=== PATIENT | male | born 1960 | race Caucasian/White ===

== ENCOUNTER → 2016-12-14 | Outpatient (CLI) | payer OTHER ==
--- NOTE | 2016-12-14 16:30 | PDCARST ---
CAR Stress Test Results Type of Stress Test: nuclear TM stress test Indication: cp/CAD Description of Procedure: After informed consent was obtained, pt was exercised according to [facility] Protocol. Monitoring was performed with standard stress tester wafer substrate electrode placement. Vital signs were monitored according to protocol throughout the procedure. STRESS EKG AND HEMODYNAMIC DATA. Exercise time: 10 min. This is equivalent to: 10.6 METS. Resting heart rate: 83 bpm. Resting blood pressure: 124/80 mmHg. Resting O2 saturation: 97%. Peak heart rate: 164 bpm. This is 98% of age predicted maximum heart rate response. Peak blood pressure: 174/70 mmHg. Exercise O2: 95 %. Arrhythmias : None. Reason for termination: The test was stopped due to shortness of breath /maximal effort. Symptoms: The patient experienced no typical symptoms of angina during stress or recovery. STRESS TEST ANALYSIS. Baseline ECG: SR with mild ST-T w abnormality. Stress ECG: ST with 1 mm flat STD. exercise induced ischemic ECG changes: Yes. Rhythm: No arrhythmias noted during exercise and recovery. Blood pressure: Normal blood pressure response to exercise. Exercise tolerance: The patient has normal exercise tolerance adjusted for age and gender. Symptoms: Shortness of breath. Impression: IMPRESSIONS: Stress ECG equivocal for ischemia. The Fajardo Treadmill Score is 10- 5(1) = 5. Conclusion: Await nuclear images.
== END ==
LOC: FIMAGING 13:22
PROVIDERS: ATTEND Nurse Practitioner Adult Health
DX: I25.10 Atherosclerotic heart disease of native coronary artery without angina pectoris (principal); R07.9 Chest pain, unspecified
CPT/HCPCS: 78452; 93017; A9500

== ENCOUNTER 2017-10-31 15:36 | Observation (INO) | payer OTHER ==
[2017-10-31] MEDS ORDERED: NS 1,000 ML IV ONE (15:52)
--- NOTE | 2017-10-31 15:53 | EDPHY ---
HPI/HX/ROS/PE/MDM Narrative: CHIEF COMPLAINT: "Been having really high blood pressure lately, feeling it" HPI: The patient is a 57 y/o male with a history of CAD post circumflex stenting in 2016 and 2017, hypertension, and dyslipidemia complaining of high blood pressure, anxiety, and mild chest pain for the last 2-3 days. He has felt poor throughout the weekend and started checking his blood pressure today. His home monitor showed 198/96 and later at the pharmacy it was 208/111, prompting him to come to the ED. He reports he is "diligent" with his antihypertensives and cardiac medications and recently restarted HCTZ at his provider's direction. He complains of associated 2/10, dull, left anterior chest pressure that is much more mild than his prior VT and he attributes it to anxiety. He took 0.25mg of his Clonazepam today for this and feels slightly better now , though he continues to feel anxious and "spooked." He denies fever, chills, dyspnea, nausea, vomiting, abdominal pain, or other complaints. REVIEW OF SYSTEMS: Aside from elements discussed in the HPI, a comprehensive 10-point review of systems was reviewed and is negative. PMH: CAD (Brilinta) and VT status post circumflex stenting 2015 and 2016; hypertension (lisinopril, metoprolol, HCTZ); dyslipidemia (rosuvastatin); cholecystectomy 2003; knee surgery 2000; tonsillectomy 2004. Prior medical records reviewed including admission 12/02/16 for chest pain. SOCIAL HISTORY: Nonsmoker. Sober. . 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 PHYSICAL EXAM: General:Patient is alert, in no acute distress. BP 178/108. ENT:Eyes are normal to inspection. ENT inspection normal. Neck: Normal inspection. Full range of motion. Respiratory:No respiratory distress. Breath sounds normal bilaterally. Cardiovascular: Regular rate and rhythm. Strong peripheral pulses. Normal cap refill. Abdomen:The abdomen is nontender to palpation. There are no peritoneal signs. Back: Normal to inspection. No tenderness to palpation. Skin: Normal color. No rash. Warm and dry. Extremities: Normal appearance. Full range of motion. Neuro: Oriented x3. Normal motor function. Normal sensory function. ED Course: This is a 57 y/o male with a significant cardiac history who presents with a 2-3 -day history of malaise, anxiety, chest pain, and hypertension. Pain is mild compared to prior VT. Exam is unremarkable. BP here is 178/108. Plan for standard chest pain work up including IV, labs, EKG, chest x-ray. The 12 lead EKG was interpreted by myself. Sinus mechanism rate 81. See hard copy and/or "tracemaster" electronic copy for interpretation. Chest x-ray: negative Labs including troponin are normal. Reassessed patient and discussed findings. Offered admission for further investigation of his chest pain, which he ultimately agrees to. Spoke with hospitalist service. Dr. Chavez accepts admission. - Data Points Imaging Results: Imaging Impressions Chest X-Ray 10/31/17 15:47 Impression: Clear lungs. No pulmonary edema or effusion. Imaging: I viewed and interpreted images myself Laboratory Results: Laboratory Results 10/31/17 15:55 10/31/17 15:55 10/31/17 10/31/17 10/31/17 15:58 15:55 15:55 WBC 8.14 10^3/uL 10^3/uL (3.80-9.50) RBC 5.29 10^6/uL 10^6/uL (4.40-6.38) Hgb 16.1 g/dL g/dL (13.7-17.5) Hct 46.4 % % (40.0-51.0) MCV 87.7 fL fL (81.5-99.8) MCH 30.4 pg pg (27.9-34.1) MCHC 34.7 g/dL g/dL (32.4-36.7) RDW 12.6 % % (11.5-15.2) Plt Count 211 10^3/uL 10^3/uL (150-400) MPV 10.7 fL fL (8.7-11.7) Neut % (Auto) 73.8 % % (39.3-74.2) Lymph % (Auto) 18.2 % % (15.0-45.0) [place] % (Auto) 6.6 % % (4.5-13.0) Eos % (Auto) 0.7 % % (0.6-7.6) Baso % (Auto) 0.5 % % (0.3-1.7) Nucleat RBC Rel Count 0.0 % % (0.0-0.2) Absolute Neuts (auto) 6.00 10^3/uL 10^3/uL (1.70-6.50) Absolute Lymphs (auto) 1.48 10^3/uL 10^3/uL (1.00-3.00) Absolute Monos (auto) 0.54 10^3/uL 10^3/uL (0.30-0.80) Absolute Eos (auto) 0.06 10^3/uL 10^3/uL (0.03-0.40) Absolute Basos (auto) 0.04 10^3/uL 10^3/uL (0.02-0.10) Absolute Nucleated RBC 0.00 10^3/uL 10^3/uL (0-0.01) Immature Gran % 0.2 % % (0.0-1.1) Immature Gran # 0.02 10^3/uL 10^3/uL (0.00-0.10) Sodium 141 mEq/L mEq/L (135-145) Potassium 3.6 mEq/L mEq/L (3.3-5.0) Chloride 105 mEq/L mEq/L (97-110) Carbon Dioxide 24 mEq/l mEq/l (22-31) Anion Gap 12 mEq/L mEq/L (8-16) BUN 14 mg/dL mg/dL (7-23) Creatinine 0.9 mg/dL mg/dL (0.7-1.3) Estimated GFR > 60 Glucose 94 mg/dL mg/dL (70-100) Calcium 9.9 mg/dL mg/dL (8.5-10.4) POC Troponin I 0.00 ng/mL ng/mL (0.00-0.08) Medications Given: Discontinued Medications Sodium Chloride (Ns) 1,000 mls @ 0 mls/hr IV EDNOW ONE; Wide Open PRN Reason: Protocol Stop: 10/31/17 15:53 Last Admin: 10/31/17 16:03 Dose: 1,000 mls Point of Care Test Results: Chemistry 10/31/17 15:58 POC Troponin I 0.00 ng/mL ng/mL (0.00-0.08) General Time Seen by Provider: 10/31/17 15:47 Initial Vital Signs: Initial Vital Signs Temperature (C) 36.7 C 10/31/17 15:39 Heart Rate 86 10/31/17 15:39 Respiratory Rate 18 10/31/17 15:39 Blood Pressure 178/108 H 10/31/17 15:39 O2 Sat (%) 96 10/31/17 15:39 O2 Delivery Mode Room Air Allergies/Adverse Reactions: No Known Allergies Allergy (Verified 10/31/17 15:38) Home Medications: Medication Instructions Recorded Hydrochlorothiazide [HCTZ (*)] 25 mg PO DAILY 10/07/15 Lisinopril [Zestril 40 mg (*)] 40 mg PO DAILY 10/07/15 Aspirin EC [Aspirin EC 81 mg (*)] 81 mg PO DAILY #0 tab 10/08/15 Ticagrelor [Brilinta] 90 mg PO BID #60 tablet 10/08/15 Multivitamins [Multivitamin (*)] 1 each PO DAILY 12/02/16 Roosevelt-3 Fatty Acids [Fish Oil 1000 1,000 mg PO DAILY 12/02/16 mg (*)] Acetaminophen [Tylenol 325mg (*)] 650 mg PO Q4HRS PRN #0 tab 12/04/16 Metoprolol Tartrate [Lopressor 25 2 tab PO BID #60 tab 12/04/16 mg (*)] Rosuvastatin Calcium [Crestor 40mg 40 mg PO DAILY #30 tab 12/04/16 (*)] Departure - Departure Disposition: [facility] Inpatient Acute Clinical Impression: Chest pain Qualifiers: Chest pain type: other chest pain Qualified Code(s): R07.89 - Other chest pain ; R07.8 - Other chest pain Hypertension Qualifiers: Hypertension type: unspecified Qualified Code(s): I10 - Essential (primary) hypertension Condition: Fair Referrals: Eliezer López MD [Primary Care Provider] - As per Instructions Report Scribed for: Paulo Kong Report Scribed by: Manda Mullen Date of Report: 10/31/17 Time of Report: 16:03 Physician Review and Approval Statement: Portions of this note were transcribed by an ED scribe. I personally performed the history, physical exam, and medical decision making; and confirm the accuracy of the information in the transcribed note.
--- NOTE | 2017-10-31 15:56 | CPEKG ---
Heart Rate: 81 RR Interval: 741 P-R Interval: 144 QRSD Interval: 96 QT Interval: 368 QTC Interval: 428 P Gallaway: 57 QRS Gallaway: -7 T Wave Gallaway: 21 EKG Severity - ABNORMAL ECG - EKG Impression: SINUS RHYTHM EKG Impression: PROBABLE LEFT VENTRICULAR HYPERTROPHY EKG Impression: PROBABLE INFERIOR INFARCT, AGE INDETERMINATE Electronically Signed By: Paulo Kong 31-Oct-2017 17:01:08
[2017-10-31 16:06] LABS: PLATELET COUNT 211 10^3/uL (150-400)
[2017-10-31] MEDS ORDERED: ONDANSETRON DISINTEGRATING 4 MG TAB PO PRN (17:28)
[2017-10-31] MEDS ORDERED: ONDANSETRON 4 MG/2 ML VIAL IVP PRN (17:28)
[2017-10-31] MEDS ORDERED: ACETAMINOPHEN 325 MG TAB PO PRN (17:28)
[2017-10-31] MEDS ORDERED: NITROGLYCERIN 0.4 MG BTL SL PRN (17:51)
--- NOTE | 2017-10-31 18:58 | PDGENHP ---
History and Physical - Chief Complaint Acute chest pain - History of Present Illness Primary care provider: Dr. Teofilo Rodriguez Primary spring assembler: Dr. López HPI: 57-year-old male presenting with acute chest pain characterized as a dull pressure located in his left chest with associated anxiety, with symptom onset approximately 2 days ago and duration persistent thereafter. Patient reports that the symptoms have persisted while at rest. He reports that approximately 1 week ago, he was chopping down a tree and during this level of physical exertion, he experienced similar symptoms. They were alleviated with rest. In the interim, he has not experienced any similar symptoms, but they returned 2 days prior without any provocation. He reports that he has taken his 's clonazepam and this has slightly alleviated his symptoms. He is otherwise continue all of his home blood pressure medications, and over the past several days he has noted significant blood pressure elevation, with systolic blood pressure being as high as 210 at home. He has been checking his blood pressure frequently. When he checks his blood pressure and it is elevated beyond 140, the patient becomes anxious. In comparison to his previous ME symptoms, the patient reports that this pressure is substantially milder, and his symptoms 2 years ago were an actual sharp stabbing pain. He otherwise denies any infectious symptoms or any GI symptoms. History Information - Allergies/Home Medication List Allergies/Adverse Reactions: No Known Allergies Allergy (Verified 10/31/17 15:38) Home Medications: Hydrochlorothiazide [HCTZ (*)] 25 mg PO DAILY 10/07/15 [Last Taken 10/31/17 08: 00] Lisinopril [Zestril 40 mg (*)] 40 mg PO DAILY 10/07/15 [Last Taken 10/31/17 08: 00] Multivitamins [Multivitamin (*)] 1 tab PO DAILY 12/02/16 [Last Taken 10/31/17 08 :00] Herbals/Supplements -Info Only 1 ea PO DAILY 10/31/17 [Last Taken Unknown] I have personally reviewed and updated: family history, medical history, social history, surgical history - Past Medical History coronary artery disease (s/p ME with stent to circumflex 2015, in stent stenosis in 2017 requiring 2 subsequent stents, known disease in the LAD and RCA ), hypertension, hyperlipidemia - Surgical History Reports: cholecystectomy, coronary stent Additional surgical history: ortho surgery. tonsillectomy - Family History Positive for: CAD (both partents with MIs in their 50s) - Social History Smoking Status: Current some day smoker (Occasional cigars) Alcohol Use: Rarely Drug Use: None Additional social history: , does not exercise regularly but he does walk his dog for approximately 60 min per day knee does not experience chest pain or shortness of breath during this activity Review of Systems Review of Systems: ROS: 10pt was reviewed & negative except for what was stated in HPI & below Cardiac: Reports: chest pain Neurological: Reports: anxiety Physical Exam Physical Exam: Temp Pulse Resp BP Pulse Ox 36.9 C 70 15 172/101 H 95 10/31/17 18:16 10/31/17 18:16 10/31/17 18:16 10/31/17 18:16 10/31/17 18:16 Constitutional: no apparent distress, appears nourished, not in pain Eyes: PERRL, anicteric sclera, EOMI Ears, Nose, Mouth, Throat: moist mucous membranes, hearing normal, ears appear normal, no oral mucosal ulcers Cardiovascular: regular rate and rhythym, no murmur, rub, or gallop, No edema Respiratory: no respiratory distress, no rales or rhonchi, clear to auscultation Gastrointestinal: normoactive bowel sounds, soft, non-tender abdomen, no palpable masses Skin: other (Benign nevi approximately 1 cm right back), No abrasion, No rash Musculoskeletal: other (Mild tenderness over the left pectoralis muscle, mild pain elicited in the left shoulder with full range of motion, no pain elicited in the right shoulder with full range of motion) Neurologic: AAOx3, sensation intact bilaterally, No weakness Psychiatric: not encephalopathic, thought process linear, anxious, No agitated Lab Data & Imaging Review 10/31/17 15:55 10/31/17 15:55 WBC 8.14 10^3/uL (3.80-9.50) 10/31/17 15:55 RBC 5.29 10^6/uL (4.40-6.38) 10/31/17 15:55 Hgb 16.1 g/dL (13.7-17.5) 10/31/17 15:55 Hct 46.4 % (40.0-51.0) 10/31/17 15:55 MCV 87.7 fL (81.5-99.8) 10/31/17 15:55 MCH 30.4 pg (27.9-34.1) 10/31/17 15:55 MCHC 34.7 g/dL (32.4-36.7) 10/31/17 15:55 RDW 12.6 % (11.5-15.2) 10/31/17 15:55 Plt Count 211 10^3/uL (150-400) 10/31/17 15:55 MPV 10.7 fL (8.7-11.7) 10/31/17 15:55 Neut % (Auto) 73.8 % (39.3-74.2) 10/31/17 15:55 Lymph % (Auto) 18.2 % (15.0-45.0) 10/31/17 15:55 [place] % (Auto) 6.6 % (4.5-13.0) 10/31/17 15:55 Eos % (Auto) 0.7 % (0.6-7.6) 10/31/17 15:55 Baso % (Auto) 0.5 % (0.3-1.7) 10/31/17 15:55 Nucleat RBC Rel Count 0.0 % (0.0-0.2) 10/31/17 15:55 Absolute Neuts (auto) 6.00 10^3/uL (1.70-6.50) 10/31/17 15:55 Absolute Lymphs (auto) 1.48 10^3/uL (1.00-3.00) 10/31/17 15:55 Absolute Monos (auto) 0.54 10^3/uL (0.30-0.80) 10/31/17 15:55 Absolute Eos (auto) 0.06 10^3/uL (0.03-0.40) 10/31/17 15:55 Absolute Basos (auto) 0.04 10^3/uL (0.02-0.10) 10/31/17 15:55 Absolute Nucleated RBC 0.00 10^3/uL (0-0.01) 10/31/17 15:55 Immature Gran % 0.2 % (0.0-1.1) 10/31/17 15:55 Immature Gran # 0.02 10^3/uL (0.00-0.10) 10/31/17 15:55 D-Dimer < 0.27 ug/mLFEU (0.00-0.50) 10/31/17 17:30 Sodium 141 mEq/L (135-145) 10/31/17 15:55 Potassium 3.6 mEq/L (3.3-5.0) 10/31/17 15:55 Chloride 105 mEq/L (97-110) 10/31/17 15:55 Carbon Dioxide 24 mEq/l (22-31) 10/31/17 15:55 Anion Gap 12 mEq/L (8-16) 10/31/17 15:55 BUN 14 mg/dL (7-23) 10/31/17 15:55 Creatinine 0.9 mg/dL (0.7-1.3) 10/31/17 15:55 Estimated GFR > 60 10/31/17 15:55 Glucose 94 mg/dL (70-100) 10/31/17 15:55 Calcium 9.9 mg/dL (8.5-10.4) 10/31/17 15:55 POC Troponin I 0.00 ng/mL (0.00-0.08) 10/31/17 15:58 Visualized and Interpreted Chest x-ray results: Yes Chest X-Ray results: no infiltrate Visualized and Interpreted EKG results: Yes EKG Interpretation: Positive for: other (Normal sinus rhythm with T-wave inversion and Q-wave in lead 3, Q-wave in AVF, left ventricular hypertrophy with poor R-wave progression in leads V2 to V3) Assessment & Plan Assessment: 57-year-old male with known coronary artery disease presents with acute chest pain, anxiety Plan: 1. Chest pain. Acute, new problem this provider, further workup indicated. Potentially recurrent in stent thrombosis in the left circumflex verses stenosis in the patient's other vessels with known disease, including LAD and the RCA, with subsequent elevation in blood pressure and resultant anxiety -reviewed outside records including 12/14/2016 nuclear medicine stress test demonstrating possible inferolateral ischemia consistent with left circumflex distribution, this stress test was performed 10 days after his most recent cardiac catheterization on 12/04/2016 which demonstrated in stent stenosis of approximately 75-80%, received 2 stents at that time in the left circ stent -discussed with Dr. Roosevelt Sevilla, cardiology will consult on this patient in a.m., will make NPO after midnight for possible cardiac catheterization -continue monitor on telemetry, cycle cardiac enzymes, check D-dimer -continue him on his home dosage of Brilinta, beta-mitul, ROHINI-inhibitor, statin -if chest pain escalates, give sublingual nitroglycerin, then morphine 2. Anxiety. Patient certainly has high anxiety component, which could be the cause of his chest discomfort and hypertension, or the subsequent affect -since is impossible to determine cause or effect with his anxiety, further evaluate his coronary disease and then direct care for anxiety thereafter 3. Hypertension. Chronic, acute elevations either cause of patient's symptoms or a subsequent affect thereof, explain this to the patient and his , he is not currently experiencing hypertensive emergency so we will not utilize intravenous antihypertensives but will monitor his blood pressure closely to establish trends and correlation with symptoms -continue his home medications Diet. Cardiac, NPO after midnight Prophylaxis. Low risk patient, SCDs Code. Full Disposition. Anticipated discharge is 11/01, pending further workup as outlined above. I have discussed patient's presentation with Dr. Paulo Kong, we both agree the patient warrants urgent cardiac risk assessment and potential intervention in the a.m.
[2017-10-31] MEDS: METOPROLOL TARTRATE 25 MG TAB PO SCH (20:02)
[2017-10-31] MEDS: TICAGRELOR 90 MG TAB PO SCH (20:03)
[2017-10-31] MEDS ORDERED: D5W 1/2 NS W/ 20 KCl/L 1,000 ML IV SCH (23:55)
[2017-11-01 08:17] VITALS: BP 165/99
[2017-11-01] MEDS: METOPROLOL TARTRATE 25 MG TAB PO SCH (08:38)
[2017-11-01] MEDS: TICAGRELOR 90 MG TAB PO SCH (08:38)
[2017-11-01] MEDS ORDERED: LISINOPRIL 40 MG TAB PO SCH (09:00)
[2017-11-01] MEDS ORDERED: HYDROCHLOROTHIAZIDE 25 MG TAB PO SCH (09:00)
[2017-11-01] MEDS ORDERED: ROSUVASTATIN CALCIUM 40 MG TAB PO SCH (09:00)
[2017-11-01] MEDS ORDERED: MULTIVITAMINS 1 EACH TAB PO SCH (09:00)
--- NOTE | 2017-11-01 09:55 | PDCARCONS ---
Cardiology Consult Reason for Consult: Hypertension, chest pressure. Chief Complaint: Elevated blood pressure. Requesting Physician: Dr. Yeimy Palma. History of Present Illness: 57-year-old male typically followed by Dr. Eliezer López as his primary pad extraction tender. He has known CAD dating back to October of 2015 at which point he suffered circumflex territory myocardial infarction. At that time he underwent PCI and stenting of the [place] circumflex. In November of 2016 he developed recurrent chest discomfort. Cardiac catheterization demonstrated a high-grade lesion within the circumflex vessel itself. This was again treated with PCI and stenting. His risk factors include hypertension and hyperlipidemia. Generally he has done fairly well. He denies any exertional chest discomfort or heaviness. He recently, he has had difficulties with escalating blood pressures. Over the last several days he has noted that his blood pressures often times will be as high as 211/108 mmHg. This has made him very anxious. He has had a sensation of an internal "tension." Additionally, he may have had very mild chest pressure however this is not a primary complaint. He went to see his PCP. He was recently started on hydrochlorothiazide which has not resulted in a substantial improvement in his blood pressure control although he has only taken several doses. He does not use dlbf-wbf-ponnjme nonsteroidal medications. He has been compliant with a heart healthy diet. He does not exercise regularly. He will take his dog for a walk several times a week. Last week he chops down a tree using an Axe. He has no effort induced chest discomfort. He has not had palpitations. He notes no fever, chills or sweats. His appetite been good. He does have a history of sleep apnea although this was treated with the UP3 in the past without recurrence of his previously noted sleep apnea symptoms. His weight is been stable. His appetite has been good. He denies lower extremity edema. There is no history of orthopnea or PND. He does note that he tracks his heart rate with his Fitbit. Often times, resting, he will have heart rates in the low 1 teens. He was admitted to the hospital. He has been on telemetry with no arrhythmias. His blood pressures have remained elevated with systolics in the 150s to 160s. His heart rates have been in the 60s and 70s. History Information - Allergies/Home Medication List Allergies/Adverse Reactions: No Known Allergies Allergy (Verified 10/31/17 15:38) Home Medications: Hydrochlorothiazide [HCTZ (*)] 25 mg PO DAILY 10/07/15 [Last Taken 10/31/17 08: 00] Lisinopril [Zestril 40 mg (*)] 40 mg PO DAILY 10/07/15 [Last Taken 10/31/17 08: 00] Multivitamins [Multivitamin (*)] 1 tab PO DAILY 12/02/16 [Last Taken 10/31/17 08 :00] I have personally reviewed and updated: family history, medical history, social history, surgical history Past Medical History: Coronary artery disease as described above, hypertension, hyperlipidemia, history of obstructive sleep apnea status post surgical therapy, 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 - Family History Positive for: CAD (Cigars on the weekends) - Social History Smoking Status: Current some day smoker (Occasional cigars) Alcohol Use: Rarely Drug Use: None Additional social history: He is . He has no children. He does not exercise regularly. 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 He does not use drugs. He rarely uses alcohol. Cardiac History - Cardiac History Past Cardiac History: CAD, PCI Physical Exam Physical Exam: Temp Pulse Resp BP Pulse Ox 36.7 C 82 18 165/99 H 96 11/01/17 08:00 11/01/17 08:00 11/01/17 08:00 11/01/17 08:00 11/01/17 08:00 Constitutional: no apparent distress, appears nourished, not in pain Eyes: PERRL, anicteric sclera, EOMI Ears, Nose, Mouth, Throat: moist mucous membranes, hearing normal, ears appear normal, no oral mucosal ulcers Cardiovascular: regular rate and rhythym, no murmur, rub, or gallop, No edema Respiratory: no respiratory distress, no rales or rhonchi, clear to auscultation Gastrointestinal: normoactive bowel sounds, soft, non-tender abdomen, no palpable masses Genitourinary: no bladder fullness, no bladder tenderness Skin: warm, normal color, no rashes or abrasions, no fluctuance, no induration, No mottled Musculoskeletal: full muscle strength, no muscle tenderness, normal joint ROM, no joint effusions Psychiatric: interacting appropriately, not anxious, not encephalopathic, thought process linear Lymph, Heme, Immunologic: no cervical LAD, no supraclavicular LAD Lab and Imaging 10/31/17 15:55 11/01/17 03:56 WBC 8.14 10^3/uL (3.80-9.50) 10/31/17 15:55 RBC 5.29 10^6/uL (4.40-6.38) 10/31/17 15:55 Hgb 16.1 g/dL (13.7-17.5) 10/31/17 15:55 Hct 46.4 % (40.0-51.0) 10/31/17 15:55 MCV 87.7 fL (81.5-99.8) 10/31/17 15:55 MCH 30.4 pg (27.9-34.1) 10/31/17 15:55 MCHC 34.7 g/dL (32.4-36.7) 10/31/17 15:55 RDW 12.6 % (11.5-15.2) 10/31/17 15:55 Plt Count 211 10^3/uL (150-400) 10/31/17 15:55 MPV 10.7 fL (8.7-11.7) 10/31/17 15:55 Neut % (Auto) 73.8 % (39.3-74.2) 10/31/17 15:55 Lymph % (Auto) 18.2 % (15.0-45.0) 10/31/17 15:55 [place] % (Auto) 6.6 % (4.5-13.0) 10/31/17 15:55 Eos % (Auto) 0.7 % (0.6-7.6) 10/31/17 15:55 Baso % (Auto) 0.5 % (0.3-1.7) 10/31/17 15:55 Nucleat RBC Rel Count 0.0 % (0.0-0.2) 10/31/17 15:55 Absolute Neuts (auto) 6.00 10^3/uL (1.70-6.50) 10/31/17 15:55 Absolute Lymphs (auto) 1.48 10^3/uL (1.00-3.00) 10/31/17 15:55 Absolute Monos (auto) 0.54 10^3/uL (0.30-0.80) 10/31/17 15:55 Absolute Eos (auto) 0.06 10^3/uL (0.03-0.40) 10/31/17 15:55 Absolute Basos (auto) 0.04 10^3/uL (0.02-0.10) 10/31/17 15:55 Absolute Nucleated RBC 0.00 10^3/uL (0-0.01) 10/31/17 15:55 Immature Gran % 0.2 % (0.0-1.1) 10/31/17 15:55 Immature Gran # 0.02 10^3/uL (0.00-0.10) 10/31/17 15:55 D-Dimer < 0.27 ug/mLFEU (0.00-0.50) 10/31/17 17:30 Sodium 138 mEq/L (135-145) 11/01/17 03:56 Potassium 3.7 mEq/L (3.3-5.0) 11/01/17 03:56 Chloride 108 mEq/L (97-110) 11/01/17 03:56 Carbon Dioxide 29 mEq/l (22-31) 11/01/17 03:56 Anion Gap 1 mEq/L (8-16) L 11/01/17 03:56 BUN 16 mg/dL (7-23) 11/01/17 03:56 Creatinine 0.9 mg/dL (0.7-1.3) 11/01/17 03:56 Estimated GFR > 60 11/01/17 03:56 Glucose 92 mg/dL (70-100) 11/01/17 03:56 Calcium 9.1 mg/dL (8.5-10.4) 11/01/17 03:56 Magnesium 2.0 mg/dL (1.6-2.3) 11/01/17 03:56 Total Bilirubin 0.8 mg/dL (0.1-1.4) 11/01/17 03:56 AST 30 IU/L (17-59) 11/01/17 03:56 ALT 50 IU/L (21-72) 11/01/17 03:56 Alkaline Phosphatase 57 IU/L (38-126) 11/01/17 03:56 POC Troponin I 0.00 ng/mL (0.00-0.08) 10/31/17 15:58 Troponin I < 0.012 ng/mL (0.000-0.034) 11/01/17 03:56 Total Protein 6.0 g/dL (6.3-8.2) L 11/01/17 03:56 Albumin 3.8 g/dL (3.5-5.0) 11/01/17 03:56 Visualized and Interpreted Chest x-ray results: Yes Chest X-ray Interpretation: no infiltrate, normal Visualized and Interpreted imaging results: Yes Visualized and Interpreted EKG results: Yes EKG additional interpertation: Normal sinus rhythm resting heart rate 81 beats per minute, previous inferior infarct age undetermined, poor R-wave progression , LVH by voltage. Telemetry: Sinus rhythm. Echocardiogram: None. A/P Assessment: 1. Coronary artery disease. As noted above he has a previous history of a circumflex territory [place] initially treated in October of 2015 with PCI and stenting. He developed a recurrent lesion in November of 2016 requiring a 2nd PCI procedure with stenting. He presents now with elevated blood pressures without real clear symptoms of angina. He specifically states that his current complaints are very dissimilar to both of his previous CAD presentations. His ECG is not acute and cardiac enzymes have been negative. 2. Hypertension. This appears to be his primary complaint. He notes that his blood pressures have been very high. With this he has a sensation of tension and anxiety. Certainly there could be a supratentorial component driving his blood pressures to be higher. Recently he has been started on hydrochlorothiazide. He notes that he is compliant with his outpatient medical therapy and is currently not abusing dhxv-twk-[id number] medications, drugs or alcohol. He gives no history of recurrent sleep apnea after having had surgical therapy for this condition. He certainly is at a point now where secondary causes of hypertension can be considered. Because of his elevated heart rates which he has noted by his Fitbit pheochromocytoma needs to be considered. 3. Hyperlipidemia. Treated with max dose statin therapy. Previous lipids have been suboptimally controlled. 4. History of obstructive sleep apnea. He is status post surgical treatment for this condition. Plan: 1. I think he should be worked up for secondary causes for hypertension. I have ordered a renal ultrasound. I have also ordered plasma fractionated metanephrines, TSH, salivary cortisol, a.m. Cortisol, serum renin and aldosterone levels, PTH. Will plan for outpatient reassessment for recurrent sleep apnea. 2. I have changed his metoprolol over to Coreg at a dose of 12.5 mg twice daily. I have also added amlodipine 2.5 mg daily. His other medications will be continued. Blood pressure control will be monitored closely as an outpatient. 3. I have ordered a fasting lipid profile. Based on his previous assessment of lipids he may benefit from the addition of Zetia to achieve aggressive and low levels of lipid control. 4. I would like him to have a regular stress test. Provided that this is normal I think that he can be discharged from the hospital later today with close follow-up by Dr. Eliezer López in the outpatient setting. 5. Further recommendations will be made pending the results his above testing. Review of Systems Review of Systems: - Review of Systems All Other Systems: Reviewed and Negative (A full 10 point review of systems was performed and is otherwise negative.)
--- NOTE | 2017-11-01 12:30 | PDDCSUM ---
Discharge Summary Discharge Summary: Dates of service 10/31-11/01/17 Consultations: cardiology Procedures performed: abd/pelvis US, treadmill stress test Hospital course by problem: 57-year-old male with known coronary artery disease presents with elevated bp, acute chest pain, anxiety Plan: # Chest pain. with hx of CAD, these sxs were very different than his prior sxs of ACS. ECG/trops negative, treadmill test negative for ischemia. 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 # HTN: has been mildly elevated since arrival, cardiology added amlodipine and changed metoprolol to carvedilol with a plan to f/u as an OP. There is small possibility of pheo given elevated HR noted on his fitbit # CAD: continued on brillinta, BB, Ignacio-i, statin # anxiety: playing a role for sure, patient recognizes that and has plans to discuss further with his pcp DC home f/u with PCP and cardiology Items for f/u: ongoing management of BP
--- NOTE | 2017-11-01 12:30 | CPR ---
[f rep st] NONINVASIVE CARDIAC PROCEDURE REPORT DATE OF PROCEDURE: 11/01/2017 PROCEDURE: Exercise treadmill test. INDICATION: The patient is a 57-year-old male with a history of coronary artery disease, status post stenting in 2016 and again in 2017. He presented to the hospital with hypertension and associated c hest pressure. He has noted pressures around 200/100. PROCEDURE IN DETAIL: Consent was obtained. The patient was placed on continuous telemetry. His res ting EKG revealed sinus bradycardia with a heart rate of 53. He exercised on the treadmill for 10-1/ 2 minutes without any associated symptoms. He had nonspecific upsloping ST depression at peak exerci se. His blood pressure at rest was 130/100. His diastolic initially decreased, but then increased. At 4 minutes into recovery, his blood pressure was 198/90 and then 170/100. Six minutes into recove ry, his blood pressure had reduced to 158/98. PLAN: Nonspecific ST-T wave changes. The tracings were reviewed with Dr. Spence. Low-risk exercise treadmill test. /[id number]/MODL
[2017-11-01] MEDS ORDERED: PNEUMOCOCCAL 0.5ML VACCINE VIAL IM ONE (12:59)
--- NOTE | 2017-11-01 16:34 | ASMTLACE ---
LACE Length of stay for Answers: Less than 1 day current admission Acuity / Level of Answers: No Care: Did the patient have an inpatient admission? Comorbidities - select Answers: Coronary Artery Disease all that apply Previous myocardial infarction Other Notes: HTN # of Emergency department Answers: 1-2 visits in the last 6 months Social determinants Answers: Mental health diagnosis (anxiety, depression, pers onality disorders, etc.) Score: 8 Date Signed: 11/01/2017 04:33 PM Electronically Signed By:Jazmine East
--- NOTE | 2017-11-01 16:37 | ASDISCHSUM ---
Discharge Information Plan Status:Home with No Needs Medically Cleared to Leave: Discharge Date:11/01/2017 01:15 PM CM D/C Disposition:Home, Routine, Self-Care ADT D/C Disposition:Home, Routine, Self-Care Projected Discharge Date:11/01/2017 01:15 PM Transportation at D/C:Family Discharge Delay Reason: Follow-Up Date:11/01/2017 01:15 PM Discharge Slot: Final Diagnosis: Placement Information Patient Contact Information Contact Name:CLAY Relationship: Address:[address] [place] Phone: [facility]/Zip Code:[place] [address] Email: Financial Information Financial Class:MWIamberly [employer] Primary Plan Desc:[facility] Primary Plan Number:[id number] Secondary Plan Desc: Secondary Plan Number: Assessment Information LACE LACE Length of stay for Answers: Less than 1 day current admission Acuity / Level of Answers: No Care: Did the patient have an inpatient admission? Comorbidities - select Answers: Coronary Artery Disease all that apply Previous myocardial infarction Other Notes: HTN # of Emergency department Answers: 1-2 visits in the last 6 months Social determinants Answers: Mental health diagnosis (anxiety, depression, pers onality disorders, etc.) Score: 8 Date Signed: 11/01/2017 04:33 PM Electronically Signed By:Jazmine East Case Management Discharge Plan Note Case Management Discharge Discharge Order Complete? Answers: Yes Patient to Obtain Answers: via Family Medications Transportation Arranged Answers: Family/Friends Discharge Comments Notes: Pt D/C'ed home. No identified C/M needs. Date Signed: 11/01/2017 04:35 PM Electronically Signed By:Jazmine East Intervention Information
[2017-11-01] MEDS ORDERED: CARVEDILOL 25 MG TAB PO SCH (18:00)
[2017-11-02] MEDS ORDERED: ASPIRIN 81 MG CHEWABLE TAB PO SCH (09:00)
== END 2017-11-01 13:15 | disposition home or self-care (01) ==
LOC: F2W 17:57
PROVIDERS: ADMIT Internal Medicine; ATTEND Internal Medicine
DX: R07.9 Chest pain, unspecified (principal); I10 Essential (primary) hypertension; E78.5 Hyperlipidemia, unspecified; F41.9 Anxiety disorder, unspecified
CPT/HCPCS: 71046; 76770; 90471; 93005; 93017; 93975; G0378; 82088-90; 83835-90; 84244-90; 84484-PO; G0009